=== PATIENT | female | born 1995 | race Asian ===

== ENCOUNTER 2021-02-15 01:09 | Inpatient (IN) ==
[2021-02-15] MEDS ORDERED: LACTATED RINGER'S 1,000 ML IV PRN (01:24)
[2021-02-15] MEDS ORDERED: OXYTOCIN 30 UNITS/500 ML BAG IV PRN ×3 (01:24→10:57)
[2021-02-15] MEDS ORDERED: PENICILLIN G POTASSIUM 6 MU in DEXTROSE 5% 250 ML IV STA (01:24)
--- NOTE | 2021-02-15 01:33 | History & Physical Report ---
Date of Service February 15, 2021 Assessment & Plan (1) : 26 y/o at 40 wga presenting in labor VSS Fetus cat 1 Labor - laboring spontaneously GBS+, will start PCN Desires epidural will obtain rapid covid History of Present Illness Chief Complaint: Labor Primary Care Provider: MARIO PCP 26 y/o at 40 wga w/ SHEYLA 02/15 by [place] who presents w/ ctx. +FM; denies LOF, VB. 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 G2 2019 at 40 wks G3 current Last pap 08/2020 in [facility] Denies hx STIs Allergies Allergy/AdvReac Type Severity Reaction Status Date / Time No Known Allergies Allergy Verified 02/12/21 13:51 Home Medications Medication Instructions Recorded Confirmed Type metronidazole 0.75 % vaginal gel 1 appful VAGINAL DAILY 5 Days #70 g 12/17/20 02/12/21 Rx docusate sodium 100 mg capsule 100 mg PO DAILY #30 cap 01/15/21 02/12/21 Rx ferrous sulfate 325 mg (65 mg 325 mg PO DAILY #30 tab 01/15/21 02/12/21 Rx iron) tablet prenat.vits,ellie,oxj-okxy-yrfrj 1 tab PO DAILY #30 tab 01/22/21 02/12/21 Rx Patient History Surgical History S/P wisdom tooth extraction Family History Brother Hepatitis C Social History Smoking Status: Never smoker marital status: marital status details: Leon (36) [phone], ramona schwartz Augustosandra [phone] Current Living Situation: Spouse Current Living Situation Comment: lives with spouse, no pets current occupational status: unemployed Physical Exam Constitutional: WD/WN, vitals as above Respiratory: normal respiratory effort; no respiratory distress and no labored breathing Genitourinary: OB Exam Abdomen: + vertex Manual OB Exam: + cervical dilation 5 cm, + cervical effacement 80% and + station -2 OB Exam Monitor Tracing: + external FHT monitor used, + external uterine monitor used (difficult to trace due to pt movement) and + category I (130/mod/+accel/-decel) Results & Data ([facility]) Laboratory Results OB Labs: Blood Type O Positive 11/08/20 Antibody Screen NEGATIVE 11/08/20 Hemoglobin 11.0 g/dL (12.0-16.0) L 11/22/20 Hematocrit 32.3 % (37-47) L 11/22/20 Mean Corpuscular Volume 96.5 fL (80-100) 11/08/20 Platelet Count 198 K/uL (130-400) 11/08/20 Rubella IgG Antibody Immune (Immune) 11/08/20 Rapid Plasma Reagin Nonreactive (Nonreactive) 11/08/20 Hepatitis B Surface Antigen Neg (Neg) 11/08/20 HIV (1&2) Ab and P24 Ag, 4th Gener Neg (Neg) 11/08/20 Glucose 1 Hour 50 gm Load 142 mg/dl (70-130) H 11/08/20 OB Optional Labs: Chlamydia trachomatis RNA NOT DETECTED (NOT DETECTED) 11/22/20 Neisseria gonorrhoeae RNA NOT DETECTED (NOT DETECTED) 11/22/20 Labs Reviewed: cfdna low risk. 12/2020 GBS+ Diagnostic Findings Posterior placenta Code Status & VTE Plan VTE Prophylaxis Plan VTE Prophylaxis will be ordered: Yes Coding Level of Care Code None Diagnoses Z34.90
[2021-02-15 01:46] LABS: Hematocrit (blood only) 34.4 % (37-47); Hemoglobin 12.1 g/dL (12.0-16.0); Mean Corpuscular Hemoglobin 33.7 pg (25-34); Mean Corpuscular Hgb Conc 35.2 g/dL (32-36); Mean Corpuscular Volume 95.8 fL (80-100); Mean Platelet Volume 10.8 fL (7.4-10.4); Platelet Count 154 K/uL (130-400); RDW Coefficient of Variation 12.7 % (11.5-14.5); RDW Standard Deviation 44.1 fL (36.4-46.3); Red Blood Count 3.59 M/uL (4.2-5.4); White Blood Count 12.41 K/uL (4.8-10.8)
[2021-02-15] MEDS ORDERED: SODIUM CHLORIDE 0.9% INJ 10 ML VIAL ONE (02:15)
[2021-02-15] MEDS ORDERED: fentaNYL citrate 100 MCG/2 ML VIAL ONE (02:15)
[2021-02-15] MEDS ORDERED: BUPIVACAINE 0.25% 30 ML VIAL ONE (02:15)
[2021-02-15] MEDS ORDERED: ePHEDrine sulfate 50 MG/ML AMP ONE (02:15)
[2021-02-15] MEDS ORDERED: fentaNYL 2MCG/ML ROPIVACAINE 1.25MG/ML 100 ML BAG EPI ONE (02:16)
[2021-02-15] MEDS ORDERED: diphenhydrAMINE 50 MG/ML VIAL IV PRN (02:38)
[2021-02-15] MEDS ORDERED: NALOXONE HCL 1 MG in SODIUM CHLORIDE 0.9% 1000ML 1,000 ML IV PRN (02:38)
[2021-02-15] MEDS ORDERED: NALOXONE HCL 0.4 MG/1 ML VIAL/CARP IV PRN (02:38)
[2021-02-15] MEDS ORDERED: fentaNYL 2MCG/ML ROPIVACAINE 1.25MG/ML 100 ML BAG EPI PRN (02:38)
[2021-02-15] MEDS ORDERED: ePHEDrine sulfate 50 MG/ML AMP IV PRN (02:38)
[2021-02-15] MEDS ORDERED: ONDANSETRON INJ 2 MG/ML 2 ML VIAL IV PRN (02:38)
--- NOTE | 2021-02-15 02:38 | Anesthesiology Consultation ---
Date of Service February 15, 2021 Assessment & Plan ASA ASA2 Proposed Anesthesia Anesthesia Type: Labor Epidural Risk / Benefits Reviewed With: PT / POA / Parent / Guardian, Accepts Plan and Informed Consent Obtained History Allergies Allergy/AdvReac Type Severity Reaction Status Date / Time No Known Allergies Allergy Verified 02/15/21 01:51 Medications Home Medications Medication Instructions Recorded Confirmed Last Taken metronidazole 0.75 % vaginal gel 1 appful VAGINAL DAILY 5 Days #70 g 12/17/20 02/15/21 Unknown docusate sodium 100 mg capsule 100 mg PO DAILY #30 cap 01/15/21 02/15/21 02/14/21 08:00 ferrous sulfate 325 mg (65 mg 325 mg PO DAILY #30 tab 01/15/21 02/15/21 Unknown iron) tablet prenat.vits,ellie,eph-zzsz-egnpo 1 tab PO DAILY #30 tab 01/22/21 02/15/21 Unknown Active Medications Generic Name Dose Route Start Last Admin Trade Name Freq PRN Reason Stop Dose Admin Lactated Ringer's 1,000 mls @ 125 mls/hr 02/15/21 01:24 02/15/21 01:30 Lr IV 02/17/21 01:23 125 mls/hr .Q8H PRN Administration L&D Protocol Protocol Past Medical History Medical History Anemia Exercise / Class Metabolic Activity II 4-5 Yardwork/Stairs/Walk up hill Past Family History Family History Brother Hepatitis C Past Surgical History Surgical History S/P wisdom tooth extraction Past Anesthesia History No Hx of Anesthesia Complications and No Family Hx of Anesthesia Complications History of PONV No Hx of PONV and No Hx of Motion Sickness Social History Smoking Status: Never smoker Review of Systems denies fever/cough/ colds/ chest pain/ SOB/ GERALDINE denies GERALDINE Physical Exam Vital Signs Last Vital Signs Temp 36.4 C L 02/15/21 02:00 Pulse 77 02/15/21 03:12 Resp 18 02/15/21 02:00 BP 115/58 L 02/15/21 03:12 Pulse Ox 97 02/15/21 03:09 ENMT Mouth: no TMJ abnormality and no dentition abnormality Thyromental Distance: > or= 3.5 Finger Breadths Mallampati Class: II Neck neck extension not limited Respiratory normal respiratory effort; no respiratory distress Auscultation: lungs clear to auscultation bilaterally Cardiovascular Rate/Rhythm: regular rate and regular rhythm Neurologic moves all extremities Psychiatric Orientation: alert and oriented x 3 Testing Laboratory Results 02/15/21 01:36
[2021-02-15] MEDS: PENICILLIN G POTASSIUM 3 MU in DEXTROSE 5% 100 ML IV PRN ×2 (05:33→09:07)
--- NOTE | 2021-02-15 08:02 | Labor Progress Brief Note ---
Date of Service February 15, 2021 Subjective Comfortable w/ epidural Assessment & Plan (1) : 26 y/o at 40 wga presenting in labor VSS Fetus cat 1 Labor - laboring spontaneously. Contractions have spaced out a bit so can start pit GBS+, will start PCN Epidural in place Admission and Anticipated Discharge Date Admission Date: February 15, 2021 Physical Exam Genitourinary: Manual OB Exam: + cervical dilation 7 cm, + cervical effacement 80%, + station 0 and + amniotic fluid (SROM) clear OB Exam Monitor Tracing: + external FHT monitor used, + external uterine monitor used (q4-8) and + category I (130/mod/+accel/-decel) Results & Data ([facility]) Vital Signs (Past 12 Hours) Vital Signs Temp Pulse Resp BP Pulse Ox 02/15/21 07:59 81 100 02/15/21 07:54 74 111/55 L 100 02/15/21 07:49 86 98 02/15/21 07:44 78 98 02/15/21 07:43 64 75 L 02/15/21 07:39 65 99 02/15/21 07:38 61 113/56 L 02/15/21 07:34 67 99 02/15/21 07:29 57 L 98 02/15/21 07:24 54 L 96 02/15/21 07:22 53 L 105/59 L 02/15/21 07:19 53 L 97 02/15/21 07:14 56 L 96 02/15/21 07:09 58 L 98 02/15/21 07:07 98.1 F 57 L 16 116/66 02/15/21 07:04 64 99 02/15/21 06:59 57 L 98 02/15/21 06:54 63 98 02/15/21 06:53 71 115/87 02/15/21 06:49 71 99 02/15/21 06:44 56 L 99 02/15/21 06:39 59 L 100 02/15/21 06:38 62 105/63 02/15/21 06:34 62 98 02/15/21 06:29 57 L 97 02/15/21 06:24 54 L 97 02/15/21 06:22 60 98/57 L 02/15/21 06:19 61 99 02/15/21 06:14 58 L 97 02/15/21 06:09 59 L 96 02/15/21 06:07 55 L 99/58 L 02/15/21 06:04 58 L 97 02/15/21 05:59 60 96 02/15/21 05:54 56 L 96 02/15/21 05:52 64 95/55 L 02/15/21 05:49 58 L 97 02/15/21 05:44 58 L 97 02/15/21 05:39 66 98 02/15/21 05:38 64 106/51 L 02/15/21 05:34 61 98 02/15/21 05:29 71 98 02/15/21 05:24 84 98 02/15/21 05:23 60 101/52 L 02/15/21 05:19 60 97 02/15/21 05:14 63 99 02/15/21 05:09 61 100 02/15/21 05:07 72 99/51 L 02/15/21 05:04 61 96 02/15/21 04:59 57 L 99 02/15/21 04:54 78 117/55 L 99 02/15/21 04:50 69 89/52 L 02/15/21 04:49 75 99 02/15/21 04:44 66 99 02/15/21 04:39 68 83/48 L 99 02/15/21 04:34 63 98 02/15/21 04:29 66 100 02/15/21 04:24 61 100 02/15/21 04:23 73 100/54 L 02/15/21 04:19 71 99 02/15/21 04:14 65 97 02/15/21 04:09 64 99 02/15/21 04:07 67 94/51 L 02/15/21 04:04 58 L 98 02/15/21 03:59 61 96 02/15/21 03:54 71 109/55 L 98 02/15/21 03:49 76 97 02/15/21 03:44 69 97 02/15/21 03:39 66 97 02/15/21 03:37 74 107/52 L 02/15/21 03:34 73 97 02/15/21 03:29 76 98 02/15/21 03:24 72 99 02/15/21 03:23 73 114/54 L 02/15/21 03:19 80 98 02/15/21 03:17 70 113/62 02/15/21 03:14 76 97 02/15/21 03:12 77 115/58 L 02/15/21 03:09 82 97 02/15/21 03:08 82 111/55 L 02/15/21 03:06 72 113/55 L 02/15/21 03:04 80 97 02/15/21 02:59 90 98 02/15/21 02:57 78 125/95 02/15/21 02:54 90 98 02/15/21 02:49 94 H 99 02/15/21 02:00 97.5 F L 18 02/15/21 01:39 67 123/58 L Coding Level of Care Code None Diagnoses Z34.90
--- NOTE | 2021-02-15 09:08 | Labor Progress Brief Note ---
Date of Service February 15, 2021 Subjective resting comfortably Assessment & Plan (1) Normal labor: Admission and Anticipated Discharge Date Admission Date: February 15, 2021 continue expectant management. Fetus category one. Anticipate . Physical Exam Constitutional: WD/WN, vitals as above Psychiatric: A+Ox3, euthymic affect Genitourinary: cx--//+1 toco--q5 min efm--130s with mod variability, small accels, no decels arom of forebag Results & Data ([facility]) Vital Signs (Past 12 Hours) Vital Signs Temp Pulse Resp BP Pulse Ox 02/15/21 09:04 72 99 02/15/21 08:59 67 98 02/15/21 08:54 63 95 02/15/21 08:52 57 L 106/56 L 02/15/21 08:49 67 96 02/15/21 08:44 65 96 02/15/21 08:39 64 98 02/15/21 08:38 60 106/59 L 02/15/21 08:34 70 98 02/15/21 08:29 76 96 02/15/21 08:24 60 99 02/15/21 08:23 59 L 106/53 L 02/15/21 08:19 72 98 02/15/21 08:14 68 99 02/15/21 08:09 63 100 02/15/21 08:08 61 110/52 L 02/15/21 08:04 66 99 02/15/21 07:59 81 100 02/15/21 07:54 74 111/55 L 100 02/15/21 07:49 86 98 02/15/21 07:44 78 98 02/15/21 07:43 64 75 L 02/15/21 07:39 65 99 02/15/21 07:38 61 113/56 L 02/15/21 07:34 67 99 02/15/21 07:29 57 L 98 02/15/21 07:24 54 L 96 02/15/21 07:22 53 L 105/59 L 02/15/21 07:19 53 L 97 02/15/21 07:14 56 L 96 02/15/21 07:09 58 L 98 02/15/21 07:07 36.7 C 57 L 16 116/66 02/15/21 07:04 64 99 02/15/21 06:59 57 L 98 02/15/21 06:54 63 98 02/15/21 06:53 71 115/87 02/15/21 06:49 71 99 02/15/21 06:44 56 L 99 02/15/21 06:39 59 L 100 02/15/21 06:38 62 105/63 02/15/21 06:34 62 98 02/15/21 06:29 57 L 97 02/15/21 06:24 54 L 97 02/15/21 06:22 60 98/57 L 02/15/21 06:19 61 99 02/15/21 06:14 58 L 97 02/15/21 06:09 59 L 96 02/15/21 06:07 55 L 99/58 L 02/15/21 06:04 58 L 97 02/15/21 05:59 60 96 02/15/21 05:54 56 L 96 02/15/21 05:52 64 95/55 L 02/15/21 05:49 58 L 97 02/15/21 05:44 58 L 97 02/15/21 05:39 66 98 02/15/21 05:38 64 106/51 L 02/15/21 05:34 61 98 02/15/21 05:29 71 98 02/15/21 05:24 84 98 02/15/21 05:23 60 101/52 L 02/15/21 05:19 60 97 02/15/21 05:14 63 99 02/15/21 05:09 61 100 02/15/21 05:07 72 99/51 L 02/15/21 05:04 61 96 02/15/21 04:59 57 L 99 02/15/21 04:54 78 117/55 L 99 02/15/21 04:50 69 89/52 L 02/15/21 04:49 75 99 02/15/21 04:44 66 99 02/15/21 04:39 68 83/48 L 99 02/15/21 04:34 63 98 02/15/21 04:29 66 100 02/15/21 04:24 61 100 02/15/21 04:23 73 100/54 L 02/15/21 04:19 71 99 02/15/21 04:14 65 97 02/15/21 04:09 64 99 02/15/21 04:07 67 94/51 L 02/15/21 04:04 58 L 98 02/15/21 03:59 61 96 02/15/21 03:54 71 109/55 L 98 02/15/21 03:49 76 97 02/15/21 03:44 69 97 02/15/21 03:39 66 97 02/15/21 03:37 74 107/52 L 02/15/21 03:34 73 97 02/15/21 03:29 76 98 02/15/21 03:24 72 99 02/15/21 03:23 73 114/54 L 02/15/21 03:19 80 98 02/15/21 03:17 70 113/62 02/15/21 03:14 76 97 02/15/21 03:12 77 115/58 L 02/15/21 03:09 82 97 02/15/21 03:08 82 111/55 L 02/15/21 03:06 72 113/55 L 02/15/21 03:04 80 97 02/15/21 02:59 90 98 02/15/21 02:57 78 125/95 02/15/21 02:54 90 98 02/15/21 02:49 94 H 99 02/15/21 02:00 36.4 C L 18 02/15/21 01:39 67 123/58 L Coding Level of Care Code None Diagnoses Normal labor O80; Z37.9
[2021-02-15] MEDS ORDERED: METHYLERGONOVINE MALEATE 0.2 MG/ML AMP ONE (10:35)
--- NOTE | 2021-02-15 10:45 | Delivery Summary ---
Vaginal Delivery Summary Date of Service February 15, 2021 Pre-operative Diagnosis: at40 weeks normal labor Post-operative Diagnosis: same Procedure: epidural arom small first degree laceration EBL: 350cc Anesthesia: epidural Procedure: The patient pushed for one contraction to deliver a viable male infant in rehan position. The nose and mouth were bulb suctioned on the perineum and the rest of the was then delivered without difficulty. The baby was vigorous. The nose and mouth were again bulb suctioned and the infant was placed in the maternal abdomen for drying and attention. Cord was clamped and cut at one minute of life. Cord blood and segment obtained. Placenta delivered spontaneous, intact with a three vessel cord. Cervix/sulci/rectum were intact. A small first degree perineal laceration was repaired in the normal standard fashion. Hemostasis obtained with dilute pitocin and fundal massage. Apgars were 9/10. Mother and baby doing well at the end of the delivery. Vaginal Delivery Summary and 1st Degree [facility] [place] Vaginal Delivery Charge Delivery Type Details: and 1st Degree [facility]
[2021-02-15] MEDS ORDERED: ACETAMINOPHEN 325 MG TAB PO PRN (10:47)
[2021-02-15] MEDS ORDERED: oxyCODONE/ACETAMINOPHEN 5mg/325mg TAB PO PRN (10:47)
[2021-02-15] MEDS ORDERED: IBUPROFEN 600 MG TAB PO PRN (10:47)
[2021-02-15] MEDS ORDERED: SUPERCREAM 0.870% 15 GM JAR EXT PRN (10:57)
[2021-02-15] MEDS ORDERED: HYDROCORTISONE ACETATE 25 MG SUPP PR PRN (10:57)
[2021-02-15] MEDS ORDERED: bisacodyL 10 MG SUPP PR PRN (10:57)
[2021-02-15] MEDS ORDERED: BENZOCAINE 20% AER SPR 82.5 GM CAN EXT PRN (10:57)
[2021-02-15] MEDS ORDERED: METHYLERGONOVINE MALEATE 0.2 MG/ML AMP IM ONE (10:57)
[2021-02-15] MEDS ORDERED: DIPHTHERIA/TETANUS/PERTUSSIS 0.5 ML SYR/VIAL IM ONE (10:57)
--- NOTE | 2021-02-15 12:55 | Anesthesia Procedure Note ---
Date of Service February 15, 2021 Anesthesia Post Epidural Note Vital Signs Vital Signs: Temp Pulse Resp BP Pulse Ox 36.6 C 71 18 116/59 L 96 02/15/21 11:40 02/15/21 12:52 02/15/21 11:40 02/15/21 12:52 02/15/21 10:34 Pain Intensity Abdomen: Pain Intensity: 0 Notes Mental Status: alert / awake / arousable Nausea / Vomiting: adequately controlled Pain: adequately controlled Airway Patency, RR, SpO2: stable & adequate BP & HR: stable & adequate Hydration State: stable & adequate Anesthetic Complications: no major complications apparent Epidural: Removed without complications and With tip intact Notes: Epidural Catheter removed without complications/Tip intact.
[2021-02-15] MEDS: DOCUSATE SODIUM 100 MG CAP PO SCH (21:06)
[2021-02-16 06:03] LABS: Hematocrit (blood only) 33.5 % (37-47)
[2021-02-16] MEDS: DOCUSATE SODIUM 100 MG CAP PO SCH (08:00)
[2021-02-16] MEDS ORDERED: PRENATAL VITAMIN 1 TAB PO SCH (08:00)
--- NOTE | 2021-02-16 08:36 | Obstetrical Progress Note ---
Date of Service February 16, 2021 Assessment & Plan (1) Vaginal delivery: Doing well. Routine care. Desires d/c. Instructions given. Visit conducted with sieve grader tender. All questions answered. Day #:: 1 Subjective Ambulation: ambulating normally Voiding: no voiding problems Passing Gas:: Yes Diet Tolerance:: regular diet Lochia:: Small Feeding Type:: breast feeding Physical Exam Constitutional WD/WN, vitals as above Respiratory normal respiratory effort, lungs clear to auscultation Cardiovascular RRR, no murmur, no edema Extremities: no calf tenderness and no edema Gastrointestinal (Abdomen) soft, nt, nd, ff/nt at 1 below u Psychiatric A+Ox3, euthymic affect Results & Data ([facility]) Vital Signs (Past 12 Hours) Vital Signs Temp Pulse Resp BP Pulse Ox 02/16/21 03:10 36.4 C L 54 L 16 83/52 L 100 02/16/21 00:05 36.6 C 54 L 16 93/88 L 98
[2021-02-16] MEDS ORDERED: bisacodyL 5 MG TABEC PO SCH (20:00)
== END 2021-02-16 16:45 | disposition home or self-care (01) | DRG 807 ==
LOC: OPB 01:09 → 4S1 01:11 → 4S2 13:30